=== PATIENT | female | born 1995 | race Caucasian/White ===

== ENCOUNTER → 2016-02-26 | Outpatient (CLI) | payer OTHER | LOC: M SMT 10:11 | PROVIDERS: ATTEND Advanced Practice Midwife | DX: Z34.83 Encounter for supervision of other normal pregnancy, third trimester (principal); Z36 Encounter for antenatal screening of mother; Z3A.00 Weeks of gestation of pregnancy not specified | CPT/HCPCS: 36415; 86850; 86901; J2790 ==

== ENCOUNTER 2016-03-19 11:27 | Emergency (ER) | payer OTHER ==
--- NOTE | 2016-03-19 12:32 | EDDOCDS ---
Nurse's Notes [facility] Name: Cate Hernández Age: 21 yrs Sex: Female : 1995 Arrival Date: 03/19/2016 Time: 11:27 Bed TR1 Private MD: No Pcp Diagnosis: Cutaneous abscess of right hand-PARONYCHIA RIGHT THUMB Presentation: 03/19 11:32 Presenting complaint: Patient states: Recently relocated here and does not have a PCP. jo3 31 weeks and has an ingrown nail to left thumb. Adult Sepsis Screening: The patient does not have new or worsening altered mentation. Patient's respiratory rate is less than 22. Systolic blood pressure is greater than 100. Patient has a qSOFA score of 0- Negative Sepsis Screen. Suicide/Homicide risk assessment- the patient denies having any suicidal and/or homicidal ideations and does not present with any other emotional, behavioral or mental health complaints. Status: The patient is a dependent. Transition of care: patient was not received from another setting of care. 11:32 Acuity: HAFSA Level 4 jo3 11:32 Method Of Arrival: Walkin/Carried/Asstd jo3 Triage Assessment: 11:34 General: Appears in no apparent distress, comfortable, Behavior is appropriate for age, jo3 cooperative, pleasant. Pain: Pain currently is 6 out of 10 on a pain scale. HIV screening NA for this visit Offered previously. 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 Vitamin Oral tab 1 tab once daily - PMHx: none; - PSHx: Tonsillectomy; Adenoidectomy; wisdom teeth; - Social history: Smoking status: Patient states former smoker of tobacco. No barriers to communication noted, The patient speaks fluent Bulgarian, Speaks appropriately for age. - Family history: Not pertinent. - : The pt / caregiver states he / she is not on anticoagulants. Home medication list is obtained from the patient. - Exposure Risk Screening:: None identified. Screenin:29 Screening information is obtained from the patient. Fall risk: No risks identified. jf3 Assistance ADL's: requires no assistance with activities of daily living. Abuse/DV Screen: The patient / caregiver reports he/she is: not in a situation that causes fear, pain or injury. Nutritional screening: No deficits noted. Advance Directives: There is no active DNR order. home support is adequate. Assessment: 12:29 General: Appears in no apparent distress, comfortable, Behavior is cooperative. Pain: jf3 Location: right thumb Pain currently is 4 out of 10 on a pain scale. Neurological: Level of Consciousness is awake, alert, Oriented to person, place, time. Cardiovascular: Capillary refill < 3 seconds Chest pain is denied. Respiratory: Airway is patent Respiratory effort is even, unlabored, Respiratory pattern is regular, symmetrical. Derm: Skin is normal, right thumb reddened. Vital Signs: 11:30 BP 127 / 68 RA Sitting (auto/reg); Pulse 88; Resp 18; Temp 99.5(O); Pulse Ox 100% on jrd R/A; Weight 60.78 kg (R); Height 5 ft. 4 in. (162.56 cm) (R); Pain 7/10; 11:30 Body Mass Index 23.00 (60.78 kg, 162.56 cm) [facility] Vitals: 11:30 Log In Time: March 19, 2016 at 11:27. [facility] ED Course: 11:28 Patient visited by Arnav Dowd PCA. jrd 11:28 Patient moved to Waiting jrd 11:30 No Pcp is Private Physician. jrd 11:31 Patient visited by Arnav Dodw PCA. jrd 11:31 Patient moved to Pre RCE jrd 11:33 Triage Initiated jo3 11:36 Patient visited by Greta Shannon RN. jo3 11:51 Patient moved to Triage 1 nb2 12:03 Keven Brian PA is PHCP. btw 12:03 Randy Parnell MD is Attending Physician. btw 12:03 Patient visited by Keven Brian PA. btw 12:18 Nataly Carlos MD is Referral Physician. btw 12:27 Patient moved to TR1 jf3 12:29 The patient / caregiver is instructed regarding the plan of care and ED course. jf3 12:29 No IV's were initiated during this patient's visit. No procedures done that require jf3 assistance. Order Results: There are currently no results for this order. Outcome: 12:19 Discharge ordered by Provider. btw 12:30 Discharge Assessment: patient administered narcotics - no. The following High Risk jf3 Discharge criteria are identified: None. Discharged to home ambulatory, with significant other. Condition: good. Discharge instructions given to patient, Instructed on discharge instructions, follow up and referral plans. Demonstrated understanding of instructions, Pt was receptive of discharge instructions/ teaching. No special radiology studies were completed. Property :Personal belongings accompany Pt. 12:31 Patient left the ED. jf3 Signatures: Greta Shannon,RN RN jo3 Keven Brian PA PA btw Arnav Dowd, PAID SEARCH ANALYST PAID SEARCH ANALYST jrd Dominik Thomas,RN RN jf3 Dasha Kelley MTDD
--- NOTE | 2016-03-19 12:32 | EDDOCDS ---
Physician Documentation [facility] Name: Cate Hernández Age: 21 yrs Sex: Female : 1995 Arrival Date: 03/19/2016 Time: 11:27 Bed TR1 Private MD: No Pcp Disposition: 03/19/16 12:19 Discharged to Home/Self Care. Impression: Cutaneous abscess of right hand - PARONYCHIA RIGHT THUMB. - Condition is Stable. - Discharge Instructions: Paronychia, [id number]. - Medication Reconciliation, Local Pharmacy Hours form. - Follow up: Nataly Carlos MD; When: Call to arrange an appointment; Reason: Further diagnostic work-up, Recheck today's complaints, Continuance of care, To establish care. - Problem is new. - Symptoms are unchanged. Historical: - Allergies: No known drug Allergies; - Home Meds: 1. Vitamin Oral tab 1 tab once daily - PMHx: none; - PSHx: Tonsillectomy; Adenoidectomy; wisdom teeth; - Social history: Smoking status: Patient states former smoker of tobacco. No barriers to communication noted, The patient speaks fluent Colombian, Speaks appropriately for age. - Family history: Not pertinent. - : The pt / caregiver states he / she is not on anticoagulants. Home medication list is obtained from the patient. - Exposure Risk Screening:: None identified. 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 4 in. (162.56 cm) (R); Pain 7/10; 11:30 Body Mass Index 23.00 (60.78 kg, 162.56 cm) jrd MDM: 12:28 Financial registration complete. lg Signatures: Sylvie Hogan, Reg Reg lg Greta Shannon,RN RN jo3 Keven Brian PA PA btw Dominik Thomas,RN RN jf3 MTDD
--- NOTE | 2016-03-21 13:32 | EDDOCDS ---
Physician Documentation [facility] Name: Cate Hernández Age: 21 yrs Sex: Female : 1995 Arrival Date: 03/19/2016 Time: 11:27 Bed TR1 Private MD: No Pcp Disposition: 03/19/16 12:19 Discharged to Home/Self Care. Impression: Cutaneous abscess of right hand - PARONYCHIA RIGHT THUMB. - Condition is Stable. - Discharge Instructions: Paronychia, [id number]. - Medication Reconciliation, Local Pharmacy Hours form. - Follow up: Nataly Carlos MD; When: Call to arrange an appointment; Reason: Further diagnostic work-up, Recheck today's complaints, Continuance of care, To establish care. - Problem is new. - Symptoms are unchanged. Historical: - Allergies: No known drug Allergies; - Home Meds: 1. Vitamin Oral tab 1 tab once daily - PMHx: none; - PSHx: Tonsillectomy; Adenoidectomy; wisdom teeth; - Social history: Smoking status: Patient states former smoker of tobacco. No barriers to communication noted, The patient speaks fluent Ethiopian, Speaks appropriately for age. - Family history: Not pertinent. - : The pt / caregiver states he / she is not on anticoagulants. Home medication list is obtained from the patient. - Exposure Risk Screening:: None identified. 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 4 in. (162.56 cm) (R); Pain 7/10; 11:30 Body Mass Index 23.00 (60.78 kg, 162.56 cm) jrd MDM: 12:28 Financial registration complete. lg 15:02 T-Sheet-- Draft Copy was scanned into [employer] and attached to record. gb 15:16 [facility] Payment Agreement was scanned into [employer] and attached to record. lg Signatures: Tracie Patten, Reg Reg gb Sylvie Hogan, Reg Reg lg Greta Shannon,RN RN jo3 Keven Brian PA PA btw Dominik ThomasRN RN jf3 The chart was reviewed and I authenticate all verbal orders and agree with the evaluation and treatment provided.Attachments: 15:02 T-Sheet-- Draft Copy gb 15:16 [facility] Payment Agreement lg Chart Complete MTDD
--- NOTE | 2016-03-21 13:32 | EDDOCDS ---
Nurse's Notes [facility] Name: Cate Hernández Age: 21 yrs Sex: Female : 1995 Arrival Date: 03/19/2016 Time: 11:27 Bed TR1 Private MD: No Pcp Diagnosis: Cutaneous abscess of right hand-PARONYCHIA RIGHT THUMB Presentation: 03/19 11:32 Presenting complaint: Patient states: Recently relocated here and does not have a PCP. jo3 31 weeks and has an ingrown nail to left thumb. Adult Sepsis Screening: The patient does not have new or worsening altered mentation. Patient's respiratory rate is less than 22. Systolic blood pressure is greater than 100. Patient has a qSOFA score of 0- Negative Sepsis Screen. Suicide/Homicide risk assessment- the patient denies having any suicidal and/or homicidal ideations and does not present with any other emotional, behavioral or mental health complaints. Status: The patient is a dependent. Transition of care: patient was not received from another setting of care. 11:32 Acuity: HAFSA Level 4 jo3 11:32 Method Of Arrival: Walkin/Carried/Asstd jo3 Triage Assessment: 11:34 General: Appears in no apparent distress, comfortable, Behavior is appropriate for age, jo3 cooperative, pleasant. Pain: Pain currently is 6 out of 10 on a pain scale. HIV screening NA for this visit Offered previously. 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 Vitamin Oral tab 1 tab once daily - PMHx: none; - PSHx: Tonsillectomy; Adenoidectomy; wisdom teeth; - Social history: Smoking status: Patient states former smoker of tobacco. No barriers to communication noted, The patient speaks fluent Polish, Speaks appropriately for age. - Family history: Not pertinent. - : The pt / caregiver states he / she is not on anticoagulants. Home medication list is obtained from the patient. - Exposure Risk Screening:: None identified. Screenin:29 Screening information is obtained from the patient. Fall risk: No risks identified. jf3 Assistance ADL's: requires no assistance with activities of daily living. Abuse/DV Screen: The patient / caregiver reports he/she is: not in a situation that causes fear, pain or injury. Nutritional screening: No deficits noted. Advance Directives: There is no active DNR order. home support is adequate. Assessment: 12:29 General: Appears in no apparent distress, comfortable, Behavior is cooperative. Pain: jf3 Location: right thumb Pain currently is 4 out of 10 on a pain scale. Neurological: Level of Consciousness is awake, alert, Oriented to person, place, time. Cardiovascular: Capillary refill < 3 seconds Chest pain is denied. Respiratory: Airway is patent Respiratory effort is even, unlabored, Respiratory pattern is regular, symmetrical. Derm: Skin is normal, right thumb reddened. Vital Signs: 11:30 BP 127 / 68 RA Sitting (auto/reg); Pulse 88; Resp 18; Temp 99.5(O); Pulse Ox 100% on jrd R/A; Weight 60.78 kg (R); Height 5 ft. 4 in. (162.56 cm) (R); Pain 7/10; 11:30 Body Mass Index 23.00 (60.78 kg, 162.56 cm) [facility] Vitals: 11:30 Log In Time: March 19, 2016 at 11:27. [facility] ED Course: 11:28 Patient visited by Arnav Dowd PCA. jrd 11:28 Patient moved to Waiting jrd 11:30 No Pcp is Private Physician. jrd 11:31 Patient visited by Arnav Dowd PCA. jrd 11:31 Patient moved to Pre RCE jrd 11:33 Triage Initiated jo3 11:36 Patient visited by Greta Shannon RN. jo3 11:51 Patient moved to Triage 1 nb2 12:03 Keven Brian PA is PHCP. btw 12:03 Randy Parnell MD is Attending Physician. btw 12:03 Patient visited by Keven Brian PA. btw 12:18 Nataly Carlos MD is Referral Physician. btw 12:27 Patient moved to TR1 jf3 12:29 The patient / caregiver is instructed regarding the plan of care and ED course. jf3 12:29 No IV's were initiated during this patient's visit. No procedures done that require jf3 assistance. 15:02 T-Sheet-- Draft Copy was scanned into [employer] and attached to record. 15:15 Patient name changed from Cate\S\\S\Hernández\S\ to Cate\S\Antoinette\S\Hernández. EDMS 15:16 [facility] Payment Agreement was scanned into [employer] and attached to record. lg Order Results: There are currently no results for this order. Outcome: 12:19 Discharge ordered by Provider. btw 12:30 Discharge Assessment: patient administered narcotics - no. The following High Risk [facility] Discharge criteria are identified: None. Discharged to home ambulatory, with significant other. Condition: good. Discharge instructions given to patient, Instructed on discharge instructions, follow up and referral plans. Demonstrated understanding of instructions, Pt was receptive of discharge instructions/ teaching. No special radiology studies were completed. Property :Personal belongings accompany Pt. 12:31 Patient left the ED. jf3 Signatures: Dispatcher [employer] EDMS Tracie Patten, Reg Reg gb Sylvie Hogan, Reg Reg lg Greta Shannon,RN RN jo3 Keven Brian PA PA btw Arnav Dowd, CIRCUITRY NEGATIVE INSPECTOR CIRCUITRY NEGATIVE INSPECTOR Dominik Lea,RN RN jf3 Dasha Kelley2 Chart Complete MTDD
--- NOTE | 2016-03-21 13:32 | EDDOCDS ---
Physician Documentation [facility] Name: Cate Hernández Age: 21 yrs Sex: Female : 1995 Arrival Date: 03/19/2016 Time: 11:27 Bed TR1 Private MD: No Pcp Disposition: 03/19/16 12:19 Discharged to Home/Self Care. Impression: Cutaneous abscess of right hand - PARONYCHIA RIGHT THUMB. - Condition is Stable. - Discharge Instructions: Paronychia, [id number]. - Medication Reconciliation, Local Pharmacy Hours form. - Follow up: Nataly Carlos MD; When: Call to arrange an appointment; Reason: Further diagnostic work-up, Recheck today's complaints, Continuance of care, To establish care. - Problem is new. - Symptoms are unchanged. Historical: - Allergies: No known drug Allergies; - Home Meds: 1. Vitamin Oral tab 1 tab once daily - PMHx: none; - PSHx: Tonsillectomy; Adenoidectomy; wisdom teeth; - Social history: Smoking status: Patient states former smoker of tobacco. No barriers to communication noted, The patient speaks fluent Chilean, Speaks appropriately for age. - Family history: Not pertinent. - : The pt / caregiver states he / she is not on anticoagulants. Home medication list is obtained from the patient. - Exposure Risk Screening:: None identified. 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 4 in. (162.56 cm) (R); Pain 7/10; 11:30 Body Mass Index 23.00 (60.78 kg, 162.56 cm) jrd MDM: 12:28 Financial registration complete. lg 15:02 T-Sheet-- Draft Copy was scanned into [employer] and attached to record. gb 15:16 [facility] Payment Agreement was scanned into [employer] and attached to record. lg Signatures: Tracie Patten, Reg Reg gb Sylvie Hogan, Reg Reg lg Greta Shannon,RN RN jo3 Keven Brian PA PA btw Dominik ThomasRN RN jf3 The chart was reviewed and I authenticate all verbal orders and agree with the evaluation and treatment provided.Attachments: 15:02 T-Sheet-- Draft Copy gb 15:16 [facility] Payment Agreement lg Chart Complete MTDD
== END 2016-03-19 12:31 | disposition home or self-care (01) ==
LOC: M ED 11:27
DX: O99.89 Other specified diseases and conditions complicating pregnancy, childbirth and the puerperium (principal); L02.511 Cutaneous abscess of right hand; Z3A.31 31 weeks gestation of pregnancy; Z87.891 Personal history of nicotine dependence

== ENCOUNTER → 2017-04-15 | Outpatient (CLI) | payer OTHER ==
[2017-04-15 18:56] LABS: HCG, SERUM QUANTITATIVE 4301 MIU/ML
== END ==
LOC: M LRY 11:28
DX: N91.2 Amenorrhea, unspecified (principal)
CPT/HCPCS: 84702

== ENCOUNTER → 2017-05-05 | Outpatient (CLI) | payer OTHER ==
[2017-05-05 17:41] LABS: BASO % 0.1 % (0.0-1.0); EOS % 0.4 % (0.0-3.0); HEMATOCRIT 37.4 % (36.0-47.0); HEMOGLOBIN 12.5 g/dl (12.0-16.0); IMMATURE GRANULOCYTE % 0.1 % (0-3.0); LYMPH # 2.1 10^3/uL (1.5-6.5); LYMPH % 28.5 % (24.0-44.0); MEAN CORPUSCULAR HEMOGLOBIN 30.5 pg (27.0-33.0); MEAN CORPUSCULAR HGB CONC 33.4 g/dl (32.0-36.5); MEAN CORPUSCULAR VOLUME 91.2 fl (80.0-96.0); MONO # 0.6 10^3/uL (0.0-0.8); MONO % 7.8 % (0.0-5.0); NEUTROPHILS # 4.5 10^3/uL (1.8-7.7); NEUTROPHILS % 63.1 % (36.0-66.0); PLATELET COUNT, AUTOMATED 227 10^3/uL (150-450); RED CELL DISTRIBUTION WIDTH 12.5 % (11.5-14.5); WHITE BLOOD COUNT 7.2 10^3/uL (4.0-10.0)
[2017-05-05 19:30] LABS: CHLAMYDIA DNA AMPLIFICATION NEGATIVE (NEGATIVE); GC DNA AMPLIFICATION NEGATIVE (NEGATIVE)
[2017-05-06 11:59] LABS: RUBELLA IgG QUALITATIVE IMMUNE (IMMUNE)
[2017-05-06 12:13] LABS: HBsAg Prenatal NEGATIVE (NEGATIVE)
[2017-05-06 12:29] LABS: HEPATITIS C VIRUS ABY INDEX 0.1 INDEX (<0.8)
[2017-05-06 12:29] LABS: HIV 1&2 SCREEN CENTAUR NEGATIVE (NEGATIVE)
== END ==
LOC: M SMT 15:30
DX: Z34.81 Encounter for supervision of other normal pregnancy, first trimester (principal); Z3A.08 8 weeks gestation of pregnancy
CPT/HCPCS: 86762

== ENCOUNTER → 2017-10-07 | Outpatient (CLI) | payer OTHER ==
[2017-10-07 17:55] LABS: HEMATOCRIT 35.6 % (36.0-47.0); HEMOGLOBIN 11.8 g/dl (12.0-15.5); MEAN CORPUSCULAR HEMOGLOBIN 31.4 pg (27.0-33.0); MEAN CORPUSCULAR HGB CONC 33.1 g/dl (32.0-36.5); MEAN CORPUSCULAR VOLUME 94.7 fl (80.0-96.0); PLATELET COUNT, AUTOMATED 213 10^3/uL (150-450); RED BLOOD COUNT 3.76 10^6/uL (4.00-5.40); RED CELL DISTRIBUTION WIDTH 13.2 % (11.5-14.5); WHITE BLOOD COUNT 9.5 10^3/uL (4.0-10.0)
[2017-10-07 18:10] LABS: APPEARANCE, URINE CLEAR (CLEAR); BACTERIA, URINE AUTO 2+ (NEGATIVE); BILIRUBIN, URINE AUTO NEGATIVE (NEGATIVE); BLOOD, URINE BLOOD NEGATIVE (NEGATIVE); COLOR, URINE YELLOW (YELLOW); GLUCOSE, URINE (UA) AUTO NEGATIVE (NEGATIVE); KETONE, URINE AUTO NEGATIVE (NEGATIVE); LEUKOCYTE ESTERASE, URINE AUTO 1+ (NEGATIVE); MUCUS, URINE SMALL (NEGATIVE); NITRITE, URINE AUTO NEGATIVE (NEGATIVE); PROTEIN, URINE AUTO NEGATIVE (NEGATIVE); RBC, URINE AUTO 1 /HPF (0-3); SPECIFIC GRAVITY URINE AUTO 1.005 (1.002-1.035); SQUAMOUS EPITHELIAL CELL UR AU 0 /HPF (0-6); UROBILINOGEN, URINE AUTO 0.2 mg/dL (0.0-2.0); WBC, URINE AUTO 2 /HPF (0-3)
[2017-10-07 18:37] LABS: ALBUMIN 3.3 GM/DL (3.2-5.2); ALBUMIN/GLOBULIN RATIO 0.94 (1.00-1.93); ALKALINE PHOSPHATASE 65 U/L (45-117); ALT/SGPT 15 U/L (12-78); AMYLASE 58 U/L (25-115); ANION GAP 11 MEQ/L (8-16); AST/SGOT 10 U/L (7-37); BILIRUBIN,TOTAL 0.2 MG/DL (0.2-1.0); BLOOD UREA NITROGEN 7 MG/DL (7-18); CALCIUM LEVEL 8.7 MG/DL (8.5-10.1); CARBON DIOXIDE LEVEL 23 MEQ/L (21-32); CHLORIDE LEVEL 107 MEQ/L (98-107); GLOMERULAR FILTRATION RATE > 60.0 (>60); GLUCOSE, FASTING 76 MG/DL (70-100); LIPASE 124 U/L (73-393); POTASSIUM SERUM 4.1 MEQ/L (3.5-5.1); SODIUM LEVEL 141 MEQ/L (136-145); TOTAL PROTEIN 6.8 GM/DL (6.4-8.2)
== END ==
LOC: M SMT 14:07
DX: R10.11 Right upper quadrant pain (principal)
CPT/HCPCS: 82150

== ENCOUNTER → 2017-11-20 | Outpatient (REF) | payer OTHER | LOC: M LAB REF 16:53 | DX: Z34.83 Encounter for supervision of other normal pregnancy, third trimester (principal) ==

== ENCOUNTER 2017-12-10 12:24 | Inpatient (IN) | payer OTHER ==
[2017-12-10] MEDS: LACTATED RINGER'S 1000 ML IV (13:20)
[2017-12-10 14:54] LABS: HEMATOCRIT 34.5 % (36.0-47.0); HEMOGLOBIN 11.7 g/dl (12.0-15.5); MEAN CORPUSCULAR HEMOGLOBIN 31.6 pg (27.0-33.0); MEAN CORPUSCULAR HGB CONC 33.9 g/dl (32.0-36.5); MEAN CORPUSCULAR VOLUME 93.2 fl (80.0-96.0); PLATELET COUNT, AUTOMATED 194 10^3/uL (150-450); RED CELL DISTRIBUTION WIDTH 13.5 % (11.5-14.5); WHITE BLOOD COUNT 7.6 10^3/uL (4.0-10.0)
[2017-12-10] MEDS ORDERED: LR 1,000 ML IV (16:19)
[2017-12-10] MEDS ORDERED: OXYTOCIN 30 UNITS IN 0.9% NaCl 500ML IV BAG (J2590) As Ordered (16:36)
[2017-12-10] MEDS: OXYTOCIN DRIP 30 UNITS in APPROPRIATE DILUENT 1 EA IV (16:55)
[2017-12-10] MEDS: LR 1,000 ML IV (16:55)
[2017-12-10] MEDS ORDERED: FENTANYL 2MCG/ML ROPIVACAINE 0.2% IN 0.9% NACL 200ML IVBAG As Ordered (19:54)
[2017-12-10] MEDS ORDERED: NALOXONE INJ 0.4 MG/1 ML VIAL (J2310) IV (21:00)
[2017-12-10] MEDS ORDERED: LACTATED RINGER'S 1000 ML IV (21:00)
[2017-12-10] MEDS ORDERED: EPIDURAL COMMENT XX (21:00)
[2017-12-10] MEDS ORDERED: ePHEDrine SULFATE 25 MG/5 ML(5MG/ML) SYRINGE IV (21:00)
[2017-12-10] MEDS ORDERED: REFRIGERATOR IV KEYS XX (21:00)
[2017-12-10] MEDS ORDERED: FENTANYL/ROPIVACAINE/NACL BAG 200 ML EPIDURAL (21:00)
[2017-12-10] MEDS ORDERED: EPIDURAL/PCA KEYS XX (21:00)
[2017-12-10] MEDS ORDERED: diphenhydrAMINE INJ 50MG/ML VIAL (J1200) IV (21:00)
[2017-12-10] MEDS ORDERED: ONDANSETRON 4MG/2ML VIAL (J2405) IV (21:00)
[2017-12-11] MEDS ORDERED: LR 1,000 ML IV (01:58)
[2017-12-11] MEDS: OXYTOCIN DRIP 30 UNITS in APPROPRIATE DILUENT 1 EA IV (01:58)
[2017-12-11] MEDS ORDERED: DOCUSATE SODIUM 100 MG CAP PO (02:00)
[2017-12-11] MEDS ORDERED: RHOGAM 300 MCG (1500 IU) INJ (J2790) IM (02:00)
[2017-12-11] MEDS ORDERED: DIBUCAINE 1% OINTMENT 30GM TOP (02:00)
[2017-12-11] MEDS ORDERED: ONDANSETRON 4MG/2ML VIAL (J2405) IV (02:00)
[2017-12-11] MEDS ORDERED: MEASLES,MUMPS,RUBELLA VACCINE INJ (MMR-II) (90707) SC (02:00)
[2017-12-11] MEDS ORDERED: PROMETHAZINE 25 MG TAB PO (02:00)
[2017-12-11] MEDS: IBUPROFEN 800 MG TAB PO ×3 (05:52→21:06)
[2017-12-11] MEDS: PRENATAL VITAMINS CHEWABLE TABLET PO (13:22)
[2017-12-11] MEDS: ACETAMINOPHEN 500 MG TAB PO (20:19)
[2017-12-12] MEDS: IBUPROFEN 800 MG TAB PO (05:56)
[2017-12-12] MEDS: PRENATAL VITAMINS CHEWABLE TABLET PO (08:55)
[2017-12-12] MEDS: ACETAMINOPHEN 500 MG TAB PO (08:55)
== END 2017-12-12 15:55 | disposition home or self-care (01) | DRG 807 ==
LOC: M LDI 12:24 → M OBS 12-11 04:49
PROVIDERS: Obstetrics & Gynecology
PROC: 3E033VJ Introduction of Other Hormone into Peripheral Vein, Percutaneous Approach (ICD-10-PCS; 2017-12-10)
PROC: 10E0XZZ Delivery of Products of Conception, External Approach (ICD-10-PCS; principal; 2017-12-11)
DX: O80 Encounter for full-term uncomplicated delivery (principal); Z37.0 Single live birth; Z3A.39 39 weeks gestation of pregnancy